=== PATIENT | male | born 1965 | race African-American/Black ===

== ENCOUNTER → 2017-01-16 | Outpatient (CLI) | payer OTHER ==
[~2017-01-16] MED LIST: ANUSOL SUPP1 SUPP PR; PROAIR HFA8.5 GM IH; SYMBICORT INH
--- NOTE | ~2017-01-16 | CR63 ---
[facility] A Service of [facility] & [facility] RADIOLOGY TEXT RESULTS PATIENT: CARLOS FLOREZ LOCATION: [facility] : 65 UNIT #: [id number] AGE: [address]: Ainsley Campbell MD SEX: M ORDER DR: [id number] [facility] [address] [place], [place] [address] [id number] O MR#: [id number] Acc #: [id number] NAME: CARLOS FLOREZ : 1965 SEX: M STUDY DATE/TIME: 01/16/2017 14:12 UNIT: [facility] ROOM: STUDY DESCRIPTION: CR Chest 2 View Attending Physician: Ainsley Campbell M.D. Referring Physician: Ainsley Campbell M.D. Ordering Physician: Ainsley Campbell M.D. Primary Care Physician: Ainsley Campbell M.D. MEDICAL IMAGING REPORT This report is preliminary unless electronic signature is present EXAM PA and lateral chest HISTORY Shortness of air and cough for 1 week. COMPARISON STUDIES 08/02/2016. FINDINGS PA and lateral views of the chest were obtained. The heart size and vascularity are normal and the lungs are clear. The bones are normal. IMPRESSION No active disease. Dictated by... Xavier Yates M.D. THIS IS AN ELECTRONICALLY VERIFIED REPORT Xavier Yates M.D. at 01/17/2017 7:17 AM FEL/pcl TD: 01/16/2017 20:17 JOB #: [id number] MEDICAL IMAGING REPORT COPY
== END | disposition home or self-care (01) ==
LOC: CRAD 13:40
DX: J44.1 Chronic obstructive pulmonary disease with (acute) exacerbation (principal)
CPT/HCPCS: 71020